=== PATIENT | female | born 1990 | race Caucasian/White ===

== ENCOUNTER 2019-06-12 05:42 | Inpatient (IN) | payer OTHER ==
[2019-06-12 05:58] VITALS: BMI 36.7
[2019-06-12] MEDS ORDERED: LIDOCAINE 0.5% (PF) 5 MG/ML (50 ML SDV) SQ PRN (06:01)
[2019-06-12] MEDS ORDERED: CARBOPROST TROMETHAMINE 250 MCG/ML 1 ML AMP IM PRN (06:01)
[2019-06-12] MEDS ORDERED: METHYLERGONOVINE 0.2 MG/ML 1 ML AMP IM PRN (06:01)
[2019-06-12] MEDS ORDERED: TERBUTALINE 1 MG/ML VIAL SQ PRN (06:01)
[2019-06-12] MEDS ORDERED: OXYTOCIN 10 UNIT/ML 1 ML VIAL IM PRN (06:01)
[2019-06-12] MEDS ORDERED: OXYTOCIN 30 UNITS/500 ML NS 30 UNIT in SALINE 1 500ML.BAG IV SCH (06:15)
[2019-06-12 06:45] LABS: Basophils % (A) 0 %; Eosinophils # (A) 0.3 k/uL (0-0.7); Eosinophils % (A) 3 %; HCT 41.3 % (34.0-46.0); HGB 13.6 gm/dL (11.4-16.0); Lymphocytes # (A) 2.2 k/uL (1.0-4.8); Lymphocytes % (A) 19 %; MCH 30.8 pg (25.0-35.0); MCV 93.2 fL (80.0-100.0); Mean Platelet Volume 9.2; Monocytes # (A) 0.7 k/uL (0-1.0); Monocytes % (A) 6 %; Neutrophils # (A) 8.3 k/uL (1.3-7.7); Neutrophils % (A) 71 %; Platelet Count 277 k/uL (150-450); RBC 4.43 m/uL (3.80-5.40); RDW 14.6 % (11.5-15.5); WBC 11.8 k/uL (3.8-10.6)
--- NOTE | 2019-06-12 07:25 | P.HPOB ---
History of Present Illness H&P Date: 06/12/19 This is a 28-year-old white female 4 para 1020 EDC 06/14/2019 at 39-5/7 weeks' gestation. Patient presented today for induction, however is in active labor. Fetus is been active throughout the . She denies fluid leakage or vaginal bleeding. Past medical history is significant for bronchitis, preeclampsia, and asthma. Past surgical history D&C 2012, wisdom teeth extracted 2009. Current medications vitamins daily, labetalol 100 mg twice daily. ALLERGIES none known. Family history is significant for hypertension, heart disease, breast cancer, melanoma. Social history is significant for patient being employed at [employer]. She is , she denies alcohol tobacco or drug use. history is significant for blood type O-, rubella status immune. Urine culture, hepatitis B surface antigen, HIV testing, gonorrhea and chlamydia cultures, group B strep cultures all negative. One-hour Glucola 114. Patient has had -induced hypertension. On exam this is a pleasant white female who is in active labor. She is 5 foot 2 inches, 201 pounds, blood pressure 136/90 on admission. The general physical exam is within normal limits. The cervix is 9 cm dilated, 90% effaced, -1 station, vertex presentation. Artificial amniorrhexis reveals clear fluid. heart rate is consistent with reactive NST. Impression: 39-5/7 weeks intrauterine , active labor, history of mild -induced hypertension on labetalol. Plan: Continue close maternal and surveillance. Anticipate normal spontaneous vaginal delivery. Review of Systems Constitutional: Reports as per HPI Past Medical History Additional Past Medical History / Comment(s): pre-eclampsia with last History of Any Multi-Drug Resistant Organisms: None Reported Additional Past Surgical History / Comment(s): D&C x2 Past Anesthesia/Blood Transfusion Reactions: No Reported Reaction Past Psychological History: No Psychological Hx Reported Additional Psychological History / Comment(s): possible depression after last delivery Smoking Status: Never smoker Past Alcohol Use History: None Reported Past Drug Use History: None Reported - Past Family History Father Family Medical History: Cancer, Hypertension Medications and Allergies Home Medications Medication Instructions Recorded Confirmed Type Labetalol HCl 100 mg PO BID 06/12/19 06/12/19 History Pnv No.95/Ferrous Fum/Folic AC 1 each PO DAILY 06/12/19 06/12/19 History [ Multivitamin Tablet] Allergies Allergy/AdvReac Type Severity Reaction Status Date / Time No Known Allergies Allergy Verified 06/12/19 05:52 Exam Vital Signs Temp Pulse Resp BP Pulse Ox 06/12/19 05:52 96.8 F L 71 16 136/90 97 Intake and Output 06/11/19 06/12/19 06/12/19 22:59 06:59 14:59 Other: # Voids 1 Weight 91.172 kg See dictation under HPI please Results Result Diagrams: 06/12/19 06:10 Abnormal Lab Results - Last 24 Hours (Table) 06/12/19 Range/Units 06:10 WBC 11.8 H (3.8-10.6) k/uL Neutrophils # 8.3 H (1.3-7.7) k/uL Assessment and Plan Assessment: 39-5/7 weeks intrauterine , active labor. -induced hypertension on labetalol. Plan: Continue close maternal and surveillance. Anticipate normal spontaneous vaginal delivery. Time with Patient: Less than 30
--- NOTE | 2019-06-12 07:55 | P.PROBDLV ---
Vaginal Delivery Note - . Vaginal Delivery Note: This is a 28-year-old white female 4 para 1021 EDC 06/14/2019 at 39-5/7 weeks' gestation. Patient presented in spontaneous active labor. Fetus active throughout the . She denied vaginal bleeding or fluid leakage. remarkable for hypertension, on labetalol 100 mg twice daily. Admitting blood pressure 136/90. Please see dictated history and physical for details. Artificial amniorrhexis revealed clear fluid. Patient progressed very rapidly through the first stage of labor and was judged to be completely dilated at 0730 hours. Perineal body was prepped and draped in the usual sterile fashion. With excellent maternal expulsive efforts the infant's head delivered occiput anterior and he restituted accordingly. There was no nuchal cord noted. The right or anterior shoulder was gently delivered from underneath the pubic symphysis at which time the oropharynx, nasopharynx, and external nares were bulb suctioned on the perineal body. Patient was officially delivered of a liveborn male infant at 0734 hours. Umbilical cord was doubly clamped and ligated. He was handed to waiting nurses for evaluation where scores of 9 and 9 at one and 5 minutes respectively were given. weight 8 lbs. 4 oz. or 3730 g. Umbilical cord was noted to be trivascular. Placenta delivered spontaneously at 0736 hours, it was inspected and noted to be intact. Uterus was then massaged. Inspection now of the cervix, vagina, perineum, periurethral, and perirectal areas revealed a very small first-degree laceration at 6:00. This was injected with lidocaine and repaired in the usual fashion. Fundus is firm and in the midline, symmetric and 18 week size upon completion of delivery. All sponge needle and enhancement counts are correct. Total estimated blood loss 250 mL's. Patient is requesting circumcision for her infant son, this will likely be performed tomorrow morning. Blood pressure will be monitored at this time, and decision to proceed with labetalol will be made later today.
[2019-06-12] MEDS ORDERED: diphenhydrAMINE 25 MG CAP PO PRN (07:57)
[2019-06-12] MEDS ORDERED: diphenhydrAMINE 50 MG CAP PO PRN (07:57)
[2019-06-12] MEDS ORDERED: SIMETHICONE 80 MG CHEWABLE PO PRN (07:57)
[2019-06-12] MEDS ORDERED: diphenhydrAMINE ELIXIR 25 MG/10 ML CUP PO PRN (07:57)
[2019-06-12] MEDS ORDERED: ACETAMINOPHEN TAB 325 MG TAB PO PRN (07:57)
[2019-06-12] MEDS ORDERED: WITCH HAZEL 1 EACH MED..PAD TOPICAL PRN (07:57)
[2019-06-12] MEDS ORDERED: diphenhydrAMINE 50 MG/ML 1 ML VIAL IVP PRN ×2 (07:57)
[2019-06-12] MEDS ORDERED: BENZOCAINE/MENTHOL SPRAY 1 GM/SPRAY AEROSOL TOPICAL PRN (07:57)
[2019-06-12] MEDS ORDERED: LANOLIN CREAM 5 GM TUBE TOPICAL PRN (07:57)
[2019-06-12] MEDS ORDERED: HYDROCORTISONE 2.5% RECTAL CREAM 30 GM TUBE RECTAL PRN (07:57)
[2019-06-12] MEDS ORDERED: ZOLPIDEM 5 MG TAB PO PRN (07:57)
[2019-06-12] MEDS ORDERED: OXYTOCIN 20 UNITS/1000 ML NS 1,000 ML IV SCH (08:00)
[2019-06-12] MEDS: IBUPROFEN 600 MG TAB PO PRN ×3 (08:35→19:54)
[2019-06-12] MEDS: SENNOSIDES-DOCUSATE SODIUM 1 EACH TAB PO SCH ×2 (08:56→19:54)
[2019-06-12] MEDS: LACTATED RINGERS 1,000 ML IV SCH ×2 (08:57→20:17)
[2019-06-13] MEDS ORDERED: Rhogam IMMUNE GLOBULIN 1,500 UNIT/1 ML IM ONE (08:49)
[2019-06-13] MEDS: IBUPROFEN 600 MG TAB PO PRN ×2 (11:17→19:44)
--- NOTE | 2019-06-13 13:06 | P.DS ---
Providers Date of admission: 06/12/19 05:42 Expected date of discharge: 06/13/19 Attending physician: Camila Pelaez Primary care physician: Stated None Hospital Course: This is a 28-year-old white female 4 para 10-1 EDC 06/14/2019 at 39-5/7 weeks' gestation. Patient presented for induction, but was judged to be in active spontaneous labor. was remarkable for blood type O-, rupee strep cultures negative, rubella status immune. Please see my dictated history and physical for details. Artificial amniorrhexis revealed clear fluid. There was no time for epidural as her first stage of labor was very rapid. Patient was judged to be completely dilated at 0730 hours. She went on to deliver swiftly a liveborn male with scores of 9 and 9 at one and 5 minutes respectively. There was a small first-degree perineal laceration that was easily repaired. Total estimated blood loss 250 mL's. weighed 3730 g or 8 lbs. 4 oz. Please see dictated delivery note for details. This morning the patient is doing well. She is declining circumcision for her son. She has a breast pump and breast-feeding is going well. She is voiding, ambulating and passing flatus without difficulty. Vital signs are stable and she is afebrile. Fundus is firm and in the midline, symmetric and 18 week size. Extremities are negative for edema. Perineum is clean and dry. She is judged to be in excellent condition for discharge home. Blood pressure since delivery has been 120s to 130s over 70s to 80s. Patient is absolutely asymptomatic. She was previously on labetalol 100 mg twice daily, but in my judgment this can be safely discontinued. Patient has a sphygmomanometer at home and will check her blood pressures at home, and call with any systolic greater than or equal to 140, or diastolic greater than or equal to 90. Patient will follow-up with me in the office in 6 weeks. I have reminded her no intercourse, tampons or douching. She will use [id number] Advil or Aleve, or ibuprofen as needed for pain. I've asked her to call me with any fevers shakes or chills, foul smelling or copious lochia, with the passage of large blood clots, with any pain not alleviated by [id number] products, or indeed with any concerns. Baby will follow up with unionmelt operator as per recommendations. Patient Condition at Discharge: Good Plan - Discharge Summary Discharge Rx Participant: No New Discharge Prescriptions: No Action Pnv No.95/Ferrous Fum/Folic AC [ Multivitamin Tablet] 1 each PO DAILY Labetalol HCl 100 mg PO BID Discharge Medication List Labetalol HCl 100 mg PO BID 06/12/19 [History] Pnv No.95/Ferrous Fum/Folic AC [ Multivitamin Tablet] 1 each PO DAILY 06/12/19 [History] Follow up Appointment(s)/Referral(s): Camila Pelaez MD [STAFF PHYSICIAN] - 6 Weeks Discharge Disposition: HOME SELF-CARE
[2019-06-13 18:07] VITALS: BP 132/87; PULSE 73; RESP 18; TEMP 98.7
[2019-06-13] MEDS: SENNOSIDES-DOCUSATE SODIUM 1 EACH TAB PO SCH (19:45)
== END 2019-06-13 20:05 | disposition home or self-care (01) | DRG 807 ==
LOC: 4FBP 05:42
PROVIDERS: ADMIT Obstetrics & Gynecology; ATTEND Obstetrics & Gynecology
PROC: 10E0XZZ Delivery of Products of Conception, External Approach (ICD-10-PCS; principal; 2019-06-12)
PROC: 0HQ9XZZ Repair Perineum Skin, External Approach (ICD-10-PCS; 2019-06-12)
DX: O13.4 Gestational [pregnancy-induced] hypertension without significant proteinuria, complicating childbirth (principal); Z37.0 Single live birth; O70.0 First degree perineal laceration during delivery; O99.52 Diseases of the respiratory system complicating childbirth; J45.909 Unspecified asthma, uncomplicated; Z3A.39 39 weeks gestation of pregnancy; Z79.899 Other long term (current) drug therapy; Z80.3 Family history of malignant neoplasm of breast; Z80.8 Family history of malignant neoplasm of other organs or systems; Z82.49 Family history of ischemic heart disease and other diseases of the circulatory system
CPT/HCPCS: 85025; 85461; 86850; 86900; 86901; 88307

== ENCOUNTER 2022-10-24 10:22 | Observation (INO) | payer BC, OTHER ==
[2022-10-24 10:58] LABS: Basophils % (A) 0 %; Eosinophils # (A) 0.1 k/uL (0-0.7); Eosinophils % (A) 1 %; HCT 34.1 % (34.0-46.0); HGB 11.4 gm/dL (11.4-16.0); Lymphocytes # (A) 1.5 k/uL (1.0-4.8); Lymphocytes % (A) 15 %; MCH 28.1 pg (25.0-35.0); MCHC 33.3 g/dL (31.0-37.0); MCV 84.2 fL (80.0-100.0); Mean Platelet Volume 9.1; Monocytes # (A) 0.7 k/uL (0-1.0); Monocytes % (A) 7 %; Neutrophils # (A) 7.6 k/uL (1.3-7.7); Neutrophils % (A) 75 %; Platelet Count 371 k/uL (150-450); RBC 4.05 m/uL (3.80-5.40); RDW 15.9 % (11.5-15.5); WBC 10.1 k/uL (3.8-10.6)
[2022-10-24] MEDS ORDERED: SODIUM CHLORIDE 0.9% 1,000 ML IV STA (11:03)
[2022-10-24] MEDS ORDERED: ONDANSETRON 4 MG/2 ML VIAL IVP STA (11:03)
[2022-10-24] MEDS ORDERED: ACETAMINOPHEN IV (For NPO) 1,000 MG in EMPTY BAG 1 BAG IVPB STA (11:03)
[2022-10-24 11:15] LABS: ALT 27 U/L (4-34); AST 27 U/L (14-36); African American GFR (CKD) >90 (>60 ml/min/1.73 sqM); Alkaline Phosphatase 92 U/L (38-126); Anion Gap 9 mmol/L; Blood Urea Nitrogen 7 mg/dL (7-17); Carbon Dioxide 20 mmol/L (22-30); Chloride 110 mmol/L (98-107); Glucose 128 mg/dL (74-99); Non-African American GFR(CKD) >90 (>60 ml/min/1.73 sqM); Potassium 4.4 mmol/L (3.5-5.1); Sodium 139 mmol/L (137-145); Total Bilirubin 0.1 mg/dL (0.2-1.3); Total Protein 6.6 g/dL (6.3-8.2)
[2022-10-24 11:32] LABS: HCG,Quantitative Serum 2191.3 mIU/mL
[2022-10-24] MEDS ORDERED: HYDROmorphone 0.5 MG/0.5 ML SYRINGE IVP STA ×2 (11:36→12:27)
[2022-10-24] MEDS ORDERED: Rhogam IMMUNE GLOBULIN 1,500 UNIT/1 ML IM ONE (11:38)
--- NOTE | 2022-10-24 11:39 | ED ---
Female Urogenital HPI - General Source: patient, RN notes reviewed Mode of arrival: wheelchair Limitations: no limitations - History of Present Illness MD Complaint: vaginal bleeding, pelvic pain Onset/Timin -: days(s) Patient : Yes Number of weeks : 10 <Clary Lainez - Last Filed: 10/24/22 15:40> <Rayo Zuleta - Last Filed: 10/24/22 16:27> - General Chief complaint: Vaginal Bleeding Stated complaint: 10wks preg, bleeding Time Seen by Provider: 10/24/22 10:42 - History of Present Illness Initial comments: This is a 32-year-old female who presents to the emergency department for vaginal bleeding. States that she had light spotting last night and the symptoms have gotten much worse this morning. She is passing a large amount of clots and has significant lower abdominal cramping. The abdominal cramping is not localized to one side. Also states that she feels nauseous and lightheaded. She is approximately 10 weeks , but has not yet followed up with her marker machine, Dr. Pelaez, who she has seen in the past. She is , with her l ast miscarriage in 2012 and most recent delivery in 2019. Denies any fevers, chills, sore throat, cough, dyspnea, chest pain, palpitations, diarrhea, back pain, or headaches. (Clary Lainez) - Related Data Home Medications Medication Instructions Recorded Confirmed DULoxetine HCL [Cymbalta] 60 mg PO HS 10/24/22 10/24/22 Dicyclomine [Bentyl] 10 mg PO QID PRN 10/24/22 10/24/22 Ondansetron Odt [Zofran Odt] 8 mg PO TID PRN 10/24/22 10/24/22 Allergies Allergy/AdvReac Type Severity Reaction Status Date / Time No Known Allergies Allergy Verified 10/24/22 14:22 Review of Systems ROS Other: All systems not noted in ROS Statement are negative. <Clary Lainez - Last Filed: 10/24/22 15:40> ROS Other: All systems not noted in ROS Statement are negative. <Rayo Zuleta - Last Filed: 10/24/22 16:27> ROS Statement: Those systems with pertinent positive or pertinent negative responses have been documented in the HPI. Past Medical History Additional Past Medical History / Comment(s): pre-eclampsia with last History of Any Multi-Drug Resistant Organisms: None Reported Additional Past Surgical History / Comment(s): D&C x2 Past Anesthesia/Blood Transfusion Reactions: No Reported Reaction Past Psychological History: No Psychological Hx Reported Smoking Status: Never smoker Past Alcohol Use History: None Reported Past Drug Use History: None Reported - Past Family History Father Family Medical History: Cancer, Hypertension <Clary Lainez - Last Filed: 10/24/22 15:40> General Exam Limitations: no limitations General appearance: alert, in distress Head exam: Present: atraumatic, normocephalic, normal inspection Respiratory exam: Present: normal lung sounds bilaterally. Absent: respiratory distress, wheezes, rales, rhonchi, stridor Cardiovascular Exam: Present: regular rate, normal rhythm, normal heart sounds. Absent: systolic murmur, diastolic murmur, rubs, gallop, clicks Neurological exam: Present: alert, oriented X3, CN II-XII intact Psychiatric exam: Present: normal affect, normal mood Skin exam: Present: warm, dry, intact, normal color. Absent: rash <Clary Lainez - Last Filed: 10/24/22 15:40> Course Vital Signs 10/24/22 10:27 Temperature 98.0 F Pulse Rate 97 Respiratory 18 Rate Blood Pressure 130/92 O2 Sat by Pulse 100 Oximetry Medical Decision Making - Lab Data Result diagrams: 10/24/22 13:51 10/24/22 10:46 - Radiology Data Radiology results: report reviewed, image reviewed <Clary Lainez - Last Filed: 10/24/22 15:40> - Lab Data Result diagrams: 10/24/22 13:51 10/24/22 10:46 <Rayo Zuleta - Last Filed: 10/24/22 16:27> - Medical Decision Making This is a 38-year-old female who presents emergency department for bleeding and . Was pt. sent in by a medical professional or institution? @ -No Did you speak to anyone other than the patient for history? @ -Friend Did you review nursing and triage notes? @ -Agree, accurate with regards to the patient's symptoms. Were old charts reviewed? @ -Previous family notes from 2019. Differential Diagnosis? @ -Spontaneous delivery, ectopic , salpingitis, PID U/S interpreted by me (1pt. min.)? @ -[none] What testing was considered but not performed? (CT, X-rays, U/S, labs)? Why? @ -None What meds were considered but not given? Why? @ -None Did you discuss the management of the patient with other professionals? @ - Did you reconcile home meds? @ -[none] Was smoking cessation discussed for >3mins.? @ -No Was critical care preformed (if so, how long)? @ -[none] Were there social determinants of health that impacted care today? How? (Homelessness, low income, unemployed, alcoholism, drug addiction, transportation, low edu. Level, literacy, decrease access to med. care, fci, rehab)? @ -No Was there de-escalation of care discussed even if they declined? (Discuss DNR or withdrawal of care, Hospice)? @ -No What co-morbidities impacted this encounter? (DM, HTN, Smoking, COPD, CAD, Cancer, CVA, Hep., AIDS, mental health diagnosis, sleep apnea, morbid obesity)? @ -[DM, HTN, Smoking, COPD, CAD, Cancer, CVA, Hep., AIDS, mental health diagnosis, sleep apnea, morbid obesity?] Was patient admitted / discharged? @ -[hospital course] Drug Therapy requiring intensive monitoring for toxicity (Heparin, Nitro, Insulin, Cardizem)? @ -[none] Were any procedures done? @ -[none] Diagnosis/symptom? @ -[default] Acute, or Chronic, or Acute on Chronic? @ -[default] Uncomplicated (without systemic symptoms) or Complicated (systemic symptoms)? @ -[default] Side effects of treatment? @ -[none] Exacerbation, Progression, or Severe Exacerbation] @ -[no] Poses a threat to life or bodily function? @ -[no] (Clary Lainez) I resumed the care of this patient from Clary Ahumada PAC, patient was evaluated by MANAGER PROCUREMENT Dr. Martini who is advising D&C at this time. Patient will be sent to the OR. (Rayo Zuleta) - Lab Data Lab Results 10/24/22 10/24/2210/24/22 Range/Units 10:46 10:46 10:46 WBC 10.1 (3.8-10.6) k/uL RBC 4.05 (3.80-5.40) m/uL Hgb 11.4 (11.4-16.0) gm/dL Hct 34.1 (34.0-46.0) % MCV 84.2 (80.0-100.0) fL MCH 28.1 (25.0-35.0) pg MCHC 33.3 (31.0-37.0) g/dL RDW 15.9 H (11.5-15.5) % Plt Count 371 (150-450) k/uL MPV 9.1 Neutrophils % 75 % Lymphocytes % 15 % Monocytes % 7 % Eosinophils % 1 % Basophils % 0 % Neutrophils # 7.6 (1.3-7.7) k/uL Lymphocytes # 1.5 (1.0-4.8) k/uL Monocytes # 0.7 (0-1.0) k/uL Eosinophils # 0.1 (0-0.7) k/uL Basophils # 0.0 (0-0.2) k/uL Hypochromasia Anisocytosis Sodium 139 (137-145) mmol/L Potassium 4.4 (3.5-5.1) mmol/L Chloride 110 H (98-107) mmol/L Carbon Dioxide 20 L (22-30) mmol/L Anion Gap 9 mmol/L BUN 7 (7-17) mg/dL Creatinine 0.61 (0.52-1.04) mg/dL Est GFR (CKD-EPI)AfAm >90 (>60 ml/min/1.73 sqM) Est GFR (CKD-EPI)NonAf >90 (>60 ml/min/1.73 sqM) Glucose 128 H (74-99) mg/dL Calcium 9.0 (8.4-10.2) mg/dL Total Bilirubin 0.1 L (0.2-1.3) mg/dL AST 27 (14-36) U/L ALT 27 (4-34) U/L Alkaline Phosphatase 92 (38-126) U/L Total Protein 6.6 (6.3-8.2) g/dL Albumin 4.0 (3.5-5.0) g/dL HCG, Quant 2191.3 mIU/mL Blood Type O Negative Blood Type Recheck O Neg Bld Type Recheck Status No Antibody Screen NEGATIVE 10/24/22 Range/Units 13:51 WBC 14.5 H (3.8-10.6) k/uL RBC 3.41 L (3.80-5.40) m/uL Hgb 9.4 L D (11.4-16.0) gm/dL Hct 29.0 L (34.0-46.0) % MCV 85.0 (80.0-100.0) fL MCH 27.7 (25.0-35.0) pg MCHC 32.6 (31.0-37.0) g/dL RDW 16.1 H (11.5-15.5) % Plt Count 350 (150-450) k/uL MPV 8.8 Neutrophils % 86 % Lymphocytes % 8 % Monocytes % 3 % Eosinophils % 1 % Basophils % 0 % Neutrophils # 12.5 H (1.3-7.7) k/uL Lymphocytes # 1.2 (1.0-4.8) k/uL Monocytes # 0.5 (0-1.0) k/uL Eosinophils # 0.1 (0-0.7) k/uL Basophils # 0.1 (0-0.2) k/uL Hypochromasia Slight Anisocytosis Slight Sodium (137-145) mmol/L Potassium (3.5-5.1) mmol/L Chloride (98-107) mmol/L Carbon Dioxide (22-30) mmol/L Anion Gap mmol/L BUN (7-17) mg/dL Creatinine (0.52-1.04) mg/dL Est GFR (CKD-EPI)AfAm (>60 ml/min/1.73 sqM) Est GFR (CKD-EPI)NonAf (>60 ml/min/1.73 sqM) Glucose (74-99) mg/dL Calcium (8.4-10.2) mg/dL Total Bilirubin (0.2-1.3) mg/dL AST (14-36) U/L ALT (4-34) U/L Alkaline Phosphatase (38-126) U/L Total Protein (6.3-8.2) g/dL Albumin (3.5-5.0) g/dL HCG, Quant mIU/mL Blood Type Blood Type Recheck Bld Type Recheck Status Antibody Screen Disposition <Clary Lainez - Last Filed: 10/24/22 15:40> Time of Disposition: 16:27 <Rayo Zuleta - Last Filed: 10/24/22 16:27> Clinical Impression: Vaginal bleeding during Disposition: ADMITTED IP TO THIS [facility] Condition: Fair Referrals: Demar Buckley MD [Primary Care Provider] - 1-2 days
[2022-10-24 13:59] LABS: Anisocytosis Slight; Basophils # (A) 0.1 k/uL (0-0.2); Basophils % (A) 0 %; Eosinophils # (A) 0.1 k/uL (0-0.7); Eosinophils % (A) 1 %; Hypochromasia Slight; Lymphocytes # (A) 1.2 k/uL (1.0-4.8); Lymphocytes % (A) 8 %; MCH 27.7 pg (25.0-35.0); MCHC 32.6 g/dL (31.0-37.0); Mean Platelet Volume 8.8; Monocytes # (A) 0.5 k/uL (0-1.0); Monocytes % (A) 3 %; Neutrophils # (A) 12.5 k/uL (1.3-7.7); Neutrophils % (A) 86 %; Platelet Count 350 k/uL (150-450); RBC 3.41 m/uL (3.80-5.40); RDW 16.1 % (11.5-15.5); WBC 14.5 k/uL (3.8-10.6)
[2022-10-24 14:06] LABS: HGB 9.4 gm/dL (11.4-16.0)
--- NOTE | 2022-10-24 14:13 | US ---
EXAMINATION TYPE: Transabdominal DATE OF EXAM: 10/24/2022 1:46 PM COMPARISON: NONE CLINICAL HISTORY: Vaginal bleeding in . Heavy bleeding and pelvic pain. Hx D and C, 2 miscar riages. . EXAM PERFORMED: Transvaginal (TV) and Transabdominal (TA) EXAM MEASUREMENTS: GESTATIONAL AGE / DATING Physician Established: Not yet established Dates by LMP: (10 weeks/1 day) EDC: 05/21/2023 Dates by First Scan: This is first scan Dates by Current Scan for: Possible gestational sac in cervix measures out of range transvaginally. MATERNAL ANATOMY Uterus: 9.9 x 7.0 x 5.7 cm. Cervix appears very heterogeneous with appearance of complex fluid within . Right Ovary: 3.1 x 1.4 x 1.5 cm. Left Ovary: Not seen. Post CDS / Adnexa: Appear wnl Presence of free fluid: None seen Presence of corpus luteal cyst: Not seen Presence of subchorionic bleed: GESTATION / SURVEY CRL: Not seen MSD: Possible sac seen in cervix measures 0.83 cm (Out of range) Yolk Sac (normal less than 6mm): Not definitely seen Heart Rate: -- IUP: Possible gestational sac seen in cervix appears complex and measures out of range. [place] rump n ot definitely seen. Date of LMP: 08/14/2022 Beta HcG (if available): 2,191.3mIU/mL IMPRESSION: 1. Hypoechoic region within the cervix without definitive gestational sac identified. Findings could represent complicated nabothian cysts, spontaneous versus ectopic . No definitive evidence of intrauterine gestational sac in this patient with a positive B-hCG. Follow up pelvic ultr asound in 5-7 days and serial beta hCG studies are recommended. 2. Heterogenous masslike area within the vagina near the cervix could represent blood products versu s other. Complete evaluation with pelvic examination/direct visualization is recommended.
--- NOTE | 2022-10-24 16:33 | P.HPOB ---
History of Present Illness H&P Date: 10/24/22 Chief Complaint: Incomplete , vaginal bleeding The patient is a 32-year-old 5 para 2021 who by last menstrual period is approximately 10 weeks . She has an intake appointment scheduled in our office within the next week. She began having light spotting with using the restroom yesterday which then resolved overnight. Today she began having brisk vaginal bleeding and presented to the emergency room for evaluation. Ultrasound fails to demonstrate an intrauterine or extrauterine though there is a cystic structure within the cervix. Beta hCG is above 2000. She has dropped her hemoglobin from approximately 12 to approximately 9.4 while in the emergency department. She is otherwise currently hemodynamically stable. Given the drop in hemoglobin and the ongoing bleeding, decision is made to proceed to the operating room for D&C. Obstetrical history: 5 para 2021 with 2 term vaginal deliveries complicated by preeclampsia. She has had 2 early miscarriages one of which required a D&C. Current statistics are listed as above. Gynecologic history: Unremarkable with no apparent history of infections to include STDs. Review of Systems Review of systems is confined to history of present illness. Past Medical History Additional Past Medical History / Comment(s): pre-eclampsia with last History of Any Multi-Drug Resistant Organisms: None Reported Additional Past Surgical History / Comment(s): D&C x2 Past Anesthesia/Blood Transfusion Reactions: No Reported Reaction Past Psychological History: No Psychological Hx Reported Smoking Status: Never smoker Past Alcohol Use History: None Reported Past Drug Use History: None Reported - Past Family History Father Family Medical History: Cancer, Hypertension Medications and Allergies Home Medications Medication Instructions Recorded Confirmed Type DULoxetine HCL [Cymbalta] 60 mg PO HS 10/24/22 10/24/22 History Dicyclomine [Bentyl] 10 mg PO QID PRN 10/24/22 10/24/22 History Ondansetron Odt [Zofran Odt] 8 mg PO TID PRN 10/24/22 10/24/22 History Allergies Allergy/AdvReac Type Severity Reaction Status Date / Time No Known Allergies Allergy Verified 10/24/22 14:22 Exam Vital Signs Temp Pulse Resp BP Pulse Ox 10/24/22 10:27 98.0 F 97 18 130/92 100 Intake and Output 10/24/22 10/24/22 10/24/22 06:59 14:59 22:59 Other: Weight 77.111 kg General, this is a well-developed, well-nourished white female in no acute distress. Her heart has a regular rhythm and rate without murmur. Her lungs clear to auscultation bilaterally in all falcon. Her abdomen is nondistended, has normal active bowel sounds, soft, nontender, without any palpable masses, hepatomegaly or hernias. Her extremities without any cyanosis, clubbing, or edema and are nontender to palpation bilaterally. Pelvic examination is deferred to the operating room. Results Result Diagrams: 10/24/22 13:51 10/24/22 10:46 Abnormal Lab Results - Last 24 Hours (Table) 10/24/22 10/24/22 10/24/22 Range/Units 10:46 10:46 13:51 WBC 14.5 H (3.8-10.6) k/uL RBC 3.41 L (3.80-5.40) m/uL Hgb 9.4 L D (11.4-16.0) gm/dL Hct 29.0 L (34.0-46.0) % RDW 15.9 H 16.1 H (11.5-15.5) % Neutrophils # 12.5 H (1.3-7.7) k/uL Chloride 110 H (98-107) mmol/L Carbon Dioxide 20 L (22-30) mmol/L Glucose 128 H (74-99) mg/dL Total Bilirubin 0.1 L (0.2-1.3) mg/dL Assessment and Plan (1) Incomplete Current Visit: Yes Status: Acute Code(s): O03.4 - INCOMPLETE SPONTANEOUS WITHOUT COMPLICATION SNOMED Code(s): 062516984 (2) Vaginal bleeding during Current Visit: Yes Status: Acute Code(s): O46.90 - ANTEPARTUM HEMORRHAGE, UNSPECIFIED, UNSPECIFIED TRIMESTER SNOMED Code(s): 41475198863331097 Plan: As noted in history present illness, given the patient's drop in hemoglobin and ongoing bleeding, we will proceed to the operating room for dilation and aspiration curettage. The risks and complications of the procedure been thoroughly discussed including the risk for bleeding, bleeding or cramping transfusion, infection, and injury to local structures to specifically include uterine perforation and Asherman syndrome. She has understood all of these concerns and agreed to proceed. If stable postoperatively, she will likely be discharged home to follow-up in the office in 2 weeks.
[2022-10-24] MEDS ORDERED: SUCCINYLCHOLINE CHLORIDE 200 MG/10 ML VIAL IV ONE (17:04)
[2022-10-24] MEDS ORDERED: PROPOFOL 10 MG/ML 20 ML VIAL IV ONE (17:04)
[2022-10-24] MEDS ORDERED: fentaNYL (PF) 50 MCG/ML 2 ML AMP ONE (17:04)
[2022-10-24] MEDS ORDERED: MIDAZOLAM 2 MG/2 ML VIAL ONE (17:04)
[2022-10-24] MEDS ORDERED: KETOROLAC 15 MG/ML 1 ML VIAL ONE (17:04)
[2022-10-24] MEDS ORDERED: SODIUM CHLORIDE 0.9% 1,000 ML IV ONE (17:07)
[2022-10-24] MEDS ORDERED: IV FLUID CONTINUATION 1,000 ML IV ONE (17:21)
[2022-10-24] MEDS ORDERED: SIMETHICONE 80 MG CHEWABLE PO PRN (17:31)
[2022-10-24] MEDS ORDERED: IBUPROFEN 600 MG TAB PO PRN (17:31)
[2022-10-24] MEDS ORDERED: Acetaminophen-Codeine 300-30mg TAB PO PRN ×2 (17:31)
[2022-10-24] MEDS ORDERED: ONDANSETRON 4 MG/2 ML VIAL IVP PRN (17:31)
[2022-10-24] MEDS ORDERED: diphenhydrAMINE 50 MG/ML 1 ML VIAL IVP PRN (17:31)
[2022-10-24] MEDS ORDERED: METOCLOPRAMIDE 5 MG/ML 2 ML VIAL IVP PRN (17:31)
[2022-10-24] MEDS ORDERED: KETOROLAC 15 MG/ML 1 ML VIAL IVP PRN (17:31)
[2022-10-24] MEDS ORDERED: LIDOCAINE 1% (10MG/ML) FOR IV START INTRADERMA PRN (17:36)
[2022-10-24] MEDS ORDERED: LACTATED RINGERS 1,000 ML IV SCH ×2 (17:36→17:45)
--- NOTE | 2022-10-24 17:38 | P.OP ---
Date of Procedure: 10/24/22 Preoperative Diagnosis: #1. Ten-week incomplete #2. Active vaginal bleeding Postoperative Diagnosis: Same Procedure(s) Performed: #1. Dilation and aspiration curettage Anesthesia: JEAN MARIE Surgeon: Darrel Martini Estimated Blood Loss (ml): 50 IV fluids (ml): 400 Urine output (ml): 50 Pathology: other (Intrauterine contents) Condition: stable Disposition: PACU Operative Findings: Operative pelvic examination demonstrated a roughly 6 week anteverted mobile normal uterus with the cervix dilated to more than 1 cm and tissue palpable within the os. There was a moderate amount of clot in the vagina. A ring forceps was utilized to remove some of the tissue in the cervix but more tissue seen passing through the suction tubing with aspiration curettage. Following the procedure, the uterine cavity was significantly smaller. Uterus did sound preoperatively to 10 cm. There was minimal to no ongoing bleeding at the end of the case. Description of Procedure: The patient was prepped and draped in usual fashion after general endotracheal anesthesia was administered by the anesthesiologist. A weighted speculum was placed and the bladder drained of approximately 50 mL of clear nish urine. Clot was cleared from the vagina and the anterior lip the cervix grasped with a single-tooth tenaculum. There was tissue clearly seen in the os which was grasped with a ring forceps and gently removed to be added to the specimen later. The uterus was sounded to 10 cm as noted above. A #8 curved aspiration curet was placed to the fundus of uterus and suction applied. Thorough and circumferential aspiration curettage was carried out from the fundus to the cervix with tissue clearly seen passing through the tubing. A second pass was made which time no further tissue was seen. The aspiration curet was set aside in favor of a medium sharp curet. Thorough and circumferential sharp curettage was carried out demonstrating the typical gritty texture of the endometrium and no tissue was produced. One last pass was then made with the aspiration curet which time there was no tissue seen. All instrumentation was removed. The tenaculum sites were bleeding minimally but made hemostatic with pressure. There was no ongoing bleeding from the cervix of any significance. Estimated blood loss for the case itself was approximately 50 mL. There were no complications. All sponge, instrument, and needle counts were correct. The patient tolerated the procedure well and proceeded to the recovery room in stable condition.
[2022-10-24 18:41] VITALS: RESP 16; TEMP 97
[2022-10-24 20:24] VITALS: BP 122/58; PULSE 87
[2022-10-25] MEDS ORDERED: HYDROmorphone 0.5 MG/0.5 ML SYRINGE IVP PRN (07:00)
== END 2022-10-24 21:10 | disposition home or self-care (01) ==
LOC: EC 10:22 → 4FBP 16:28
PROVIDERS: ADMIT Obstetrics & Gynecology; ATTEND Obstetrics & Gynecology
DX: O03.4 Incomplete spontaneous abortion without complication (principal)
CPT/HCPCS: 59812; 96376; 96365; 96372; 96375; 99285; 36415; 86900; 86901; 88305; 80053; 85025; 86850; 84702; 76801; 76817; G0378; J2790; J2250; J0330; J2405; J3010; J0131; J1885; J2704; J1170; 36430

== ENCOUNTER 2022-10-27 20:45 | Emergency (ER) | payer BC ==
[2022-10-27 20:56] VITALS: TEMP 98.4
[2022-10-27] MEDS ORDERED: SODIUM CHLORIDE 0.9% 500 ML 500 ML IV STA (21:43)
[2022-10-27 21:58] LABS: Basophils % (A) 0 %; Eosinophils # (A) 0.2 k/uL (0-0.7); Eosinophils % (A) 3 %; Hypochromasia Slight; Lymphocytes # (A) 2.7 k/uL (1.0-4.8); Lymphocytes % (A) 46 %; MCH 27.1 pg (25.0-35.0); MCHC 32.2 g/dL (31.0-37.0); MCV 84.2 fL (80.0-100.0); Mean Platelet Volume 8.6; Monocytes # (A) 0.3 k/uL (0-1.0); Monocytes % (A) 5 %; Neutrophils # (A) 2.5 k/uL (1.3-7.7); Neutrophils % (A) 42 %; Platelet Count 325 k/uL (150-450); RBC 2.22 m/uL (3.80-5.40); WBC 5.9 k/uL (3.8-10.6)
--- NOTE | 2022-10-27 22:03 | ED ---
General Adult HPI - General Chief complaint: Recheck/Abnormal Lab/Rx Stated complaint: Irregular labs-sent by PCP Time Seen by Provider: 10/27/22 21:32 Source: patient, family Mode of arrival: ambulatory Limitations: no limitations - History of Present Illness Initial comments: This patient is a 32-year-old woman who presents to have reevaluation related to anemia. The patient states she had a D&C performed by Dr. Frias on Monday. She states that she had routine follow-up today with her primary physician who checked her hemoglobin and call her back because it was 5.7. Patient states she does have some exertional dyspnea but otherwise not having symptoms of anemia. She is not currently having vaginal bleeding. No fever or chills. No abdominal pain. No change in urination or bowel movements. -: hour(s) Severity scale (1-10): 0 Consistency: intermittent Improves with: rest Worsens with: other (Exertion) Associated Symptoms: other (Exertional dyspnea) Treatments Prior to Arrival: none - Related Data Home Medications Medication Instructions Recorded Confirmed Dicyclomine [Bentyl] 10 mg PO QID PRN 10/24/22 10/27/22 Ondansetron Odt [Zofran Odt] 8 mg PO TID PRN 10/24/22 10/27/22 Baclofen [Lioresal] 10 - 20 mg PO TID PRN 10/27/22 10/27/22 Cyclobenzaprine [Flexeril] 5 - 10 mg PO TID PRN 10/27/22 10/27/22 DULoxetine HCL [Cymbalta] 60 mg PO DAILY 10/27/22 10/27/22 Previous Rx's Medication Instructions Recorded Ferrous Sulfate [Iron] 325 mg PO BID #60 tablet 10/27/22 Allergies Allergy/AdvReac Type Severity Reaction Status Date / Time No Known Allergies Allergy Verified 10/27/22 22:21 Review of Systems ROS Statement: Those systems with pertinent positive or pertinent negative responses have been documented in the HPI. ROS Other: All systems not noted in ROS Statement are negative. Constitutional: Denies: fever, chills, weakness Eyes: Denies: vision change Respiratory: Denies: cough, dyspnea Cardiovascular: Reports: dyspnea on exertion. Denies: chest pain, palpitations, edema, syncope Gastrointestinal: Denies: abdominal pain, vomiting, diarrhea Genitourinary: Denies: dysuria, hematuria Musculoskeletal: Denies: back pain Skin: Denies: rash Hematological/Lymphatic: Denies: easy bleeding Past Medical History Additional Past Medical History / Comment(s): pre-eclampsia with last d&c History of Any Multi-Drug Resistant Organisms: None Reported Additional Past Surgical History / Comment(s): D&C x2 Past Anesthesia/Blood Transfusion Reactions: No Reported Reaction Past Psychological History: No Psychological Hx Reported Smoking Status: Former smoker, Never smoker Past Alcohol Use History: None Reported Past Drug Use History: None Reported - Past Family History Father Family Medical History: Cancer, Hypertension General Exam Limitations: no limitations General appearance: alert, in no apparent distress Head exam: Present: atraumatic, normocephalic Eye exam: Present: normal appearance. Absent: scleral icterus, conjunctival injection Respiratory exam: Present: normal lung sounds bilaterally. Absent: respiratory distress, wheezes, rales, rhonchi, stridor Cardiovascular Exam: Present: regular rate, normal rhythm, normal heart sounds. Absent: systolic murmur, diastolic murmur, rubs, gallop GI/Abdominal exam: Present: soft. Absent: distended, tenderness, guarding, rebound, rigid, mass Extremities exam: Present: normal inspection, normal capillary refill. Absent: pedal edema, calf tenderness Back exam: Present: normal inspection. Absent: CVA tenderness (R), CVA tenderness (L) Neurological exam: Present: alert Skin exam: Present: warm, dry, intact, pallor. Absent: rash Course Vital Signs 10/27/22 20:54 Temperature 98.4 F Pulse Rate 113 H Respiratory 20 Rate Blood Pressure 129/69 O2 Sat by Pulse 100 Oximetry Medical Decision Making - Medical Decision Making This patient is 32-year-old woman here after she had blood draw that showed low hemoglobin. I did discuss with the patient risks and benefits associated with transfusion versus not having transfusion and oral iron. Patient states that this point her symptoms are mild and she will try oral iron and follow-up. - Lab Data Result diagrams: 10/27/22 21:36 10/27/22 21:36 Lab Results 10/27/22 10/27/22 10/27/22 Range/Units 21:36 21:36 21:36 WBC 5.9 (3.8-10.6) k/uL RBC 2.22 L (3.80-5.40) m/uL Hgb 6.0 L* D (11.4-16.0) gm/dL Hct 18.7 L* (34.0-46.0) % MCV 84.2 (80.0-100.0) fL MCH 27.1 (25.0-35.0) pg MCHC 32.2 (31.0-37.0) g/dL RDW 16.0 H (11.5-15.5) % Plt Count 325 (150-450) k/uL MPV 8.6 Neutrophils % 42 % Lymphocytes % 46 % Monocytes % 5 % Eosinophils % 3 % Basophils % 0 % Neutrophils # 2.5 (1.3-7.7) k/uL Lymphocytes # 2.7 (1.0-4.8) k/uL Monocytes # 0.3 (0-1.0) k/uL Eosinophils # 0.2 (0-0.7) k/uL Basophils # 0.0 (0-0.2) k/uL Hypochromasia Slight Sodium 139 (137-145) mmol/L Potassium 4.0 (3.5-5.1) mmol/L Chloride 109 H (98-107) mmol/L Carbon Dioxide 25 (22-30) mmol/L Anion Gap 5 mmol/L BUN 8 (7-17) mg/dL Creatinine 0.81 (0.52-1.04) mg/dL Est GFR (CKD-EPI)AfAm >90 (>60 ml/min/1.73 sqM) Est GFR (CKD-EPI)NonAf >90 (>60 ml/min/1.73 sqM) Glucose 84 (74-99) mg/dL Calcium 8.6 (8.4-10.2) mg/dL Total Bilirubin <0.1 L (0.2-1.3) mg/dL AST 26 (14-36) U/L ALT 22 (4-34) U/L Alkaline Phosphatase 66 (38-126) U/L Total Protein 6.0 L (6.3-8.2) g/dL Albumin 3.7 (3.5-5.0) g/dL Blood Type O Negative Blood Type Recheck O Neg Bld Type Recheck Status No Antibody Screen POSITIVE Spec Expiration Date 10/30/20222335 Disposition Clinical Impression: Anemia Disposition: HOME SELF-CARE Condition: Good Instructions (If sedation given, give patient instructions): Anemia (ED) Prescriptions: Ferrous Sulfate [Iron] 325 mg PO BID #60 tablet Is patient prescribed a controlled substance at d/c from ED?: No Referrals: Demar Buckley MD [Primary Care Provider] - 1-2 days
[2022-10-27 22:09] LABS: ALT 22 U/L (4-34); AST 26 U/L (14-36); African American GFR (CKD) >90 (>60 ml/min/1.73 sqM); Albumin 3.7 g/dL (3.5-5.0); Alkaline Phosphatase 66 U/L (38-126); Anion Gap 5 mmol/L; Blood Urea Nitrogen 8 mg/dL (7-17); Calcium 8.6 mg/dL (8.4-10.2); Carbon Dioxide 25 mmol/L (22-30); Chloride 109 mmol/L (98-107); Glucose 84 mg/dL (74-99); Non-African American GFR(CKD) >90 (>60 ml/min/1.73 sqM); Sodium 139 mmol/L (137-145); Total Bilirubin <0.1 mg/dL (0.2-1.3)
[2022-10-27 22:32] LABS: HCT 18.7 % (34.0-46.0)
[2022-10-27 23:14] VITALS: BP 129/74; PULSE 85; RESP 15
== END 2022-10-27 23:14 | disposition home or self-care (01) ==
LOC: EC 20:45
DX: D64.9 Anemia, unspecified (principal); Z87.891 Personal history of nicotine dependence
CPT/HCPCS: 36415; 80053; 85025; 86850; 86870; 86880; 86900; 86901; 99284